=== PATIENT | male | born 1950 | race Caucasian/White ===

== ENCOUNTER 2018-08-13 16:44 | Emergency (ER) | payer OTHER, MEDICARE ==
[2018-08-13] MEDS ORDERED: NITROGLYCERIN SUBLINGUAL 1/150 0.4 MG TAB SL PRN (16:50)
[2018-08-13] MEDS ORDERED: ASPIRIN 81 MG CHEWABLE TABLETS PO ONE ×2 (16:50→16:51)
--- NOTE | 2018-08-13 16:50 | PDOC ---
History of Present Illness - General Chief Complaint: Chest Pain Stated Complaint: CHEST PAIN Time Seen by Provider: 08/13/18 16:50 History Source: Patient Exam Limitations: No Limitations - History of Present Illness Initial Comments: HPI: 68 y/o male presenting to ER via private auto complaining of chest pain for five days. Symp acutely worsening around 13:00-14:00 after eating dinner. Pt reports he became pale and diaphoretic. Pain originates in left side of chest with radiation to left arm and under left shoulder blade. Not reproducible with inspiration or palpation. No SOB. Denies history of similar pain. Denies cardiac history but endorses high cholesterol without medical management. Has never undergone cardiac stress test. Brother likely had a massive heart attack earlier this year. PCP: Wilberto Ray Hx: - EtOH: Social, none in past 48 hours - Tobacco: Never Smoker - Street Drugs: Denies Medical Hx: - BPH, managed with Tamsulosin Surgical Hx: - Knee arthroscopy Past History - Past Medical History Allergies/Adverse Reactions: Allergies Allergy/AdvReac Type Severity Reaction Status Date / Time lactose AdvReac Nausea Verified 08/13/18 16:49 Home Medications: Ambulatory Orders Aspirin [Aspirin EC] 81 mg PO DAILY 08/13/18 Finasteride 5 mg PO DAILY 08/13/18 Ibuprofen 800 mg PO TID PRN 08/13/18 Meloxicam 15 mg PO DAILY PRN 08/13/18 Oxymetazoline HCl [Afrin] 1 spray NS DAILY 08/13/18 Tamsulosin HCl [Flomax] 0.4 mg PO HS 08/13/18 Tramadol HCl 50 mg PO BID PRN 08/13/18 Review of Systems - Review of Systems Able to Perform ROS?: Yes Comments:: In addition to that documented in the HPI above, the additional ROS was obtained : Constitutional: Denies fevers or chills Eyes: Denies vision changes ENMT: Denies sore throat CV: Per HPI Resp: Denies SOB GI: Denies vomiting or diarrhea : Denies painful urination MSK: Denies recent trauma Skin: Denies new rashes Neuro: Denies new numbness or tingling or weakness Endocrine: Denies polyuria Heme: Denies bleeding or bruising *Physical Exam - Physical Exam Comments: Constitutional: Well-developed, well-nourished male in no acute distress or obvious discomfort. Found semi-fowlers on hospital bed. Alert and oriented x4. Answered all questions appropriately and completely. Speech was non-labored, non -pressured. Head: Normocephalic. No obvious external signs of trauma. Eyes: Sclerae white. EARS: Hearing grossly intact. NOSE: No nasal discharge. Nasal cannula in place. THROAT: Oral cavity and pharynx normal. No inflammation, swelling, exudate, or lesions. Teeth and gingiva in good general condition. Neck: Supple, trachea is midline. No JVD. Cardiovascular: Regular rate and regular rhythm. No murmur, rubs, clicks, or gallops. Peripheral pulses: Radial pulses full. Respiratory: Breathing unlabored. Equal chest rise and fall. Clear to auscultation bilaterally. No stridor, no wheezing, no rhonchi. Gastrointestinal: abdomen is soft, non-tender, non-distended. Neuro: Alert and oriented. Moving all four extremities spontaneously. Skin: Warm, dry, and intact. No bruising, rashes, or other lesions. Psych: Affect: appropriate. Mood: normal. ED Treatment Course - LABORATORY CBC & Chemistry Diagram: 08/13/18 16:54 08/13/18 16:54 Medical Decision Making - Medical Decision Making *Reviewed vital signs, nursing notes, and prior visit documentation (if available). 68 y/o male complaining of non reproducible left sided chest pain with radiation to left arm and left shoulder blade for five days with acute worsening of symptoms at approx. 13:00-14:00 this afternoon. No cardiac history but endorses HCL not managed. Vitals remarkable for hypertension without tachycardia. Initial EKG showed ST segment depression and inverted T waves in V3 , V4, V5, V6. Further T wave inversions in aVL, V1, and V2. Ordered ACS protocol. Administered 324 ASA and .4 Nitro SL. Pain decreased to 1/10 with 1x nitro. Repeat EKG at 20 minute after first showed ST segment depressions resolved but inverted T waves remain unchanged. CBC unremarkable for anemia or leukocytosis. CMP unremarkable for electrolyte derangement. LFTs not elevated. BUN and Cr at baseline. eGFR >60. Troponin <0.003. Suspect this value is possibly in the rising phase. Continue to have high suspicion for ACS. Suspect repeat troponin will be elevated. CXR revealed enlarged cardiac silhouette (on portable film). No other acute cardiopulmonary findings based on ED wet read. Formal radiology reported pending. 16:59 Telephone conversation with [facility] transfer center. bacteriology technician is involved in emergency and will return call. 17:[address] Alcocer, castables worker at [facility]. Verbally appraised of the pts HPI, ED course, and current plan of management. Requests heparin therapy. Will accept pt to be transferred to [facility] ED for further evaluation. Discussed imaging and laboratory results as well as plan to transfer to [facility] for higher level of care with pt. Answered all questions. Pt expressed verbal understanding and agreement with plan. 08/13/18 18:15 [facility] crew arrived for transfer to [facility]. *DC/Admit/Observation/Transfer Diagnosis at time of Disposition: Unstable angina, Acute electrocardiogram changes - Discharge Dispostion Disposition: TRANSFER ACUTE CARE/OTHER HOSP Condition at time of disposition: Stable Decision to Admit order: No - Referrals - Patient Instructions Additional Instructions: You were seen today for chest pain. Your EKG showed signs of possible heart damage. You were transferred to [facility] for evaluation by a higher level of care. - Post Discharge Activity
[2018-08-13] MEDS ORDERED: ASPIRIN 81 MG CHEWABLE TABLETS ONE (16:57)
[2018-08-13] MEDS ORDERED: NITROGLYCERIN SUBLINGUAL 1/150 0.4 MG TAB ONE (16:57)
[2018-08-13 17:01] VITALS: TEMP 98.5; BMI 28.1
--- NOTE | 2018-08-13 17:18 | PDOC ---
Attending Attestation - Resident Resident Name: Abimael Lockett - ED Attending Attestation I have performed the following: I have examined & evaluated the patient, The case was reviewed & discussed with the resident, I agree w/resident's findings & plan - HPI HPI: 08/13/18 17:15 68 y/o male with chest pain for 5 days, worse today with sweating. Pain down left arm. Patient thought he may have pulled a muscle. No back pain, jaw pain or SOB. Took a baby Aspirin today. Denies fever, chills, fall or trauma. No N/V/ d/C. Brother with CAD. No prior hx of heart disease. - Physicial Exam PE: 08/13/18 17:17 VSS HEENT: unremarkable, no carotid bruits or JVD noted Heart: RRR w/o murmur, no clicks gallops or rubs noted, non reproducible chest pain Lungs: CTA b/l, no wheezes rhonchi or rales Abd: soft non tender +BS, no pulsatile mass Ext: no C/C/E Neuro: grossly intact, no focal deficits noted 08/13/18 17:35 - Medical Decision Making 08/13/18 17:33 CXR: enlarged heart, NAD EKG #[address] depressions EKG #[address] depressions improved Pt given Aspirin 324 mg adn Nitro, pain down to a level 1 Pt prefers to be sen to [facility] Resident Lockett spoke with transfer center, 1st Troponin negative, will accept to Dr. Alcocer service Pt is in agreement with plan, discussed plan with Dr. Lockett Final Dx: chest pain/unstable angina
[2018-08-13 17:19] LABS: BASO % 0.9 % (0-2.0); EOS % 4.4 % (0-4.5); HEMOGLOBIN 13.9 GM/dl (11.7-16.9); LYMPH % 24.9 % (8-40); MCH 29.5 pg (25.7-33.7); MCHC 33.9 g/dl (32.0-35.9); MONO % 8.7 % (3.8-10.2); NEUT % 61.1 % (42.8-82.8); PLATELET COUNT 203 K/MM3 (134-434); RBC 4.72 M/mm3 (4.00-5.60); RDW 12.9 % (11.9-15.9); WHITE BLOOD COUNT 5.5 K/mm3 (4.0-10.8)
[2018-08-13 17:25] LABS: ALK PHOS 64 U/L (32-92); ANION GAP 8 MMOL/L (8-16); BILIRUBIN,TOTAL 1.2 mg/dl (0.2-1.0); BLOOD UREA NITROGEN 21 mg/dl (7-18); CALCIUM 9.2 mg/dl (8.4-10.2); CHLORIDE 106 mmol/L (98-107); CO2 25 mmol/L (22-28); CREATININE 1.2 mg/dl (0.6-1.3); GLUCOSE,RANDOM 113 mg/dl (74-106); SGOT/AST 19 U/L (10-42); SGPT/ALT 15 U/L (10-40); SODIUM 139 mmol/L (136-145); TOT PROT 6.3 g/dl (6.4-8.3)
[2018-08-13 17:26] LABS: INR 1.11 (0.82-1.09); PROTHROMBIN TIME (PATIENT) 12.4 SEC (10.2-13.0)
[2018-08-13] MEDS ORDERED: HEPARIN NA (PORCINE) 5,000 UNITS/ML 1ML VIAL IVPUSH ONE (17:36)
[2018-08-13] MEDS ORDERED: HEPARIN INFUSION - 25,000 UNITS/500 ML INFUS.BAG IVPB SCH (18:00)
[2018-08-13 18:02] VITALS: BP 170/65; PULSE 58
[2018-08-13] MEDS ORDERED: HEPARIN NA (PORCINE) 5,000 UNITS/ML 1ML VIAL ONE (18:02)
[2018-08-13] MEDS ORDERED: HEPARIN INFUSION - 25,000 UNITS/500 ML INFUS.BAG IVPB ONE (18:03)
--- NOTE | 2018-08-14 12:22 | EKG ---
Test Reason : Blood Pressure : / mmHG Vent. Rate : 066 BPM Atrial Rate : 066 BPM P-R Int : 196 ms QRS Dur : 130 ms QT Int : 422 ms P-R-T Axes : 048 -57 099 degrees QTc Int : 442 ms NORMAL SINUS RHYTHM POSSIBLE LEFT ATRIAL ENLARGEMENT RIGHT BUNDLE BRANCH BLOCK LEFT ANTERIOR FASCICULAR BLOCK BIFASCICULAR BLOCK LEFT VENTRICULAR HYPERTROPHY T WAVE ABNORMALITY, CONSIDER LATERAL ISCHEMIA ABNORMAL ECG WHEN COMPARED WITH ECG OF 13-AUG-2018 17:03, NO SIGNIFICANT CHANGE WAS FOUND Confirmed by FABIENNE CARTER MD ([id number]) on 08/14/2018 12:21:50 PM Referred By: CELY Confirmed By:FABIENNE CARTER MD
--- NOTE | 2018-08-14 16:34 | EKG ---
Test Reason : Blood Pressure : / mmHG Vent. Rate : 073 BPM Atrial Rate : 073 BPM P-R Int : 188 ms QRS Dur : 126 ms QT Int : 420 ms P-R-T Axes : 032 -58 070 degrees QTc Int : 462 ms NORMAL SINUS RHYTHM POSSIBLE LEFT ATRIAL ENLARGEMENT RIGHT BUNDLE BRANCH BLOCK LEFT ANTERIOR FASCICULAR BLOCK BIFASCICULAR BLOCK LEFT VENTRICULAR HYPERTROPHY CANNOT RULE OUT SEPTAL INFARCT (CITED ON OR BEFORE 13-AUG-2018) T WAVE ABNORMALITY, CONSIDER LATERAL ISCHEMIA ABNORMAL ECG WHEN COMPARED WITH ECG OF 13-AUG-2018 16:40, NO SIGNIFICANT CHANGE WAS FOUND Confirmed by FABIENNE CARTER MD ([id number]) on 08/14/2018 4:34:08 PM Referred By: CELY Confirmed By:FABIENNE CARTER MD
--- NOTE | 2018-08-14 16:34 | EKG ---
Test Reason : Blood Pressure : / mmHG Vent. Rate : 076 BPM Atrial Rate : 076 BPM P-R Int : 184 ms QRS Dur : 120 ms QT Int : 392 ms P-R-T Axes : 035 -57 090 degrees QTc Int : 441 ms NORMAL SINUS RHYTHM POSSIBLE LEFT ATRIAL ENLARGEMENT RIGHT BUNDLE BRANCH BLOCK LEFT ANTERIOR FASCICULAR BLOCK BIFASCICULAR BLOCK LEFT VENTRICULAR HYPERTROPHY CANNOT RULE OUT SEPTAL INFARCT , AGE UNDETERMINED ABNORMAL ECG NO PREVIOUS ECGS AVAILABLE Confirmed by RAUL YANEZ, FABIENNE ([id number]) on 08/14/2018 4:34:19 PM Referred By: CELY Confirmed By:FABIENNE CARTER MD
== END 2018-08-13 18:28 | disposition short-term general hospital (02) ==
LOC: FER 16:44 → SUPCPDRO 16:44 → FER 18:28
PROC: 3E033GC Introduction of Other Therapeutic Substance into Peripheral Vein, Percutaneous Approach (ICD-10-PCS; principal; 2018-08-13)
DX: I20.0 Unstable angina (principal); R94.31 Abnormal electrocardiogram [ECG] [EKG]
CPT/HCPCS: 36415; 71045-TC-FY; 80053; 82550; 83735; 84484; 85025; 85610; 93005; 96365; 96375; 99285-25; J1644